=== PATIENT | male | born 1990 | race Caucasian/White ===

== ENCOUNTER 2016-12-07 21:56 | Emergency (ER) | payer OTHER ==
[2016-12-07 22:07] VITALS: BP 143/95; TEMP 98; BMI 35.9
--- NOTE | 2016-12-07 22:34 | PDOC ---
History of Present Illness <Desiree Mathur - Last Filed: 12/07/16 22:45> - History of Present Illness Initial Comments: 12/07/16 22:34 CHIEF COMPLAINT: chest pain HISTORY OF PRESENT ILLNESS: 26 yo M with no significant PMH presents to ED with chest pain that began approximately 1.5 hours ago. Patient states " I think it was just a little panic attack." He reports having a lot of congestion recently and woke up feeling like he couldn't breathe, "and I think that made me scared." but now he no longer has chest pain and has no SOB. He reports two days of cough and congestion but denies any fever, nausea, vomiting, diarrhea, headache. No recent travel or sick contacts. PAST MEDICAL HISTORY: Denies past medical history FAMILY HISTORY: Denies SOCIAL HISTORY: Very occasional alcohol use. Denies tobacco, illicit drug use. SURGICAL HISTORY: Denies ALLERGIES: No known drug allergies REVIEW OF SYSTEMS General/Constitutional: Denies fever or chills. Denies weakness, weight change. HEENT: Denies change in vision. Denies ear pain or discharge. Denies sore throat. Cardiovascular: Chest pain earlier, now resolved. Respiratory: Denies cough, wheezing, or hemoptysis. Gastrointestinal: Denies nausea, vomiting, diarrhea or constipation. Denies rectal bleeding. Genitourinary: Denies dysuria, frequency, or change in urination. Musculoskeletal: Denies joint or muscle swelling or pain. Denies neck or back pain. Skin and breasts: Denies rash or easy bruising. Neurologic: Denies headache, vertigo, loss of consciousness, or loss of sensation. PHYSICAL EXAM General Appearance: Well-appearing, appropriately dressed. No apparent distress , no intoxication. HEENT: Congestion, swollen turbinates. EOMI, PERRLA, normal ENT inspection, normal voice, TMs normal, pharynx normal. No conjunctival pallor. No photophobia, scleral icterus. Neck: Supple. Trachea midline. No tenderness, rigidity, carotid bruit, stridor , lymphadenopathy, or thyromegaly. Respiratory/Chest: Lungs CTAB. No shortness of breath, chest tenderness, respiratory distress, accessory muscle use. No crackles, rales, rhonchi, stridor , wheezing, dullness Cardiovascular: RRR. S1, S2. No JVD, murmur, bradycardia, tachycardia. Vascular Pulses: Dorsalis-Pedis (R): 2+, Dorsalis-Pedis (L): 2+ Gastrointestinal/Abdominal: Normal bowel sounds. Abdomen soft, non-distended. No tenderness or rebound tenderness. No organomegaly, pulsatile mass, guarding , hernia, hepatomegaly, splenomegaly. Lymphatic: No adenopathy, tenderness. Musculoskeletal/Extremities: Normal inspection. FROM of all extremities, normal capillary refill. Pelvis Stable. No CVA tenderness. No tenderness to extremities, pedal edema, swelling, erythema or deformity. Integumentary: Appropriate color, dry, warm. 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 Fully oriented, alert. Appropriate mood/affect. Motor strength 5/5. No appreciable EOM palsy, facial droop or sensory deficit. 12/07/16 22:50 <Tori Gomez - Last Filed: 12/07/16 23:26> - General Chief Complaint: Chest Pain Stated Complaint: CHEST PAIN Time Seen by Provider: 12/07/16 22:18 Past History <Desiree Mathur - Last Filed: 12/07/16 22:45> - Past Medical History GI Disorders: Yes (GERD) - Immunization History Immunization Up to Date: Yes - Psycho/Social/Smoking Cessation Hx Anxiety: No Suicidal Ideation: No Smoking Status: No Smoking History: Never smoked Number of Cigarettes Smoked Daily: 0 Hx Alcohol Use: No <Tori Gomez - Last Filed: 12/07/16 23:26> - Past Medical History Allergies/Adverse Reactions: Allergies Allergy/AdvReac Type Severity Reaction Status Date / Time No Known Allergies Allergy Verified 12/07/16 22:04 Home Medications: Ambulatory Orders Dextromethorphan HBr [Robitussin] 15 mg PO QID PRN #28 capsule 12/07/16 Loratadine [Claritin -] 10 mg PO DAILY #14 tablet 12/07/16 *Physical Exam - Vital Signs Last Vital Signs Temp Pulse Resp BP Pulse Ox 98 F 105 H 18 143/95 99 12/07/16 22:05 12/07/16 22:05 12/07/16 22:05 12/07/16 22:05 12/07/16 22:05 <Desiree Mathur - Last Filed: 12/07/16 22:45> - Vital Signs Last Vital Signs Temp Pulse Resp BP Pulse Ox 98 F 105 H 18 143/95 99 12/07/16 22:05 12/07/16 22:05 12/07/16 22:05 12/07/16 22:05 12/07/16 22:05 <Tori Gomez - Last Filed: 12/07/16 23:26> Heart Score/ECG Review - ECG Impressions Comment:: 12/07/16 22:45 NSR @97bpm Possible left atrial enlargement Borderline ECG <Desiree Mathur - Last Filed: 12/07/16 22:45> ED Treatment Course - RADIOLOGY Radiology Studies Ordered: Category Date Time Status CHEST PA & LAT [RAD] Stat Radiology 12/07/16 22:33 Ordered <Tori Gomez - Last Filed: 12/07/16 23:26> Medical Decision Making - Medical Decision Making 12/07/16 23:01 26 yo M with no PMH presents to ED with chest pain and SOB 1.5 hours ago, now resolved. Patient HR 105 on arrival to ED, on exam 88. -EKG, CXR EKG - NSR. Read by myself and MD Aguirre. Advised patient of signs and symptoms for return to ER; patient verbalized understanding and agrees to plan. 12/07/16 23:23 Chest x-ray clear. -Claritin 10 mg po -Dextromethorphan 15 mL QID PRN cough Advised patient to take medication as prescribed and follow up with PMD if symptoms persist. Advised patient of signs and symptoms for return to ED. Patient verbalized understanding and agrees to plan. <Tori Gomez - Last Filed: 12/07/16 23:26> *DC/Admit/Observation/Transfer <Desiree Mathur - Last Filed: 12/07/16 22:45> - Discharge Dispostion Admit: No <Tori Gomez - Last Filed: 12/07/16 23:26> Diagnosis at time of Disposition: Common cold - Discharge Dispostion Disposition: HOME Condition at time of disposition: Stable - Prescriptions Prescriptions: Loratadine [Claritin -] 10 mg PO DAILY #14 tablet Dextromethorphan HBr [Robitussin] 15 mg PO QID PRN #28 capsule PRN Reason: Cough - Referrals Referrals: Nasim Joy MD [Primary Care Provider] -
[2016-12-08 00:34] VITALS: PULSE 98
--- NOTE | 2016-12-08 09:38 | EKG ---
Test Reason : Blood Pressure : / mmHG Vent. Rate : 097 BPM Atrial Rate : 097 BPM P-R Int : 162 ms QRS Dur : 092 ms QT Int : 340 ms P-R-T Axes : 027 067 022 degrees QTc Int : 431 ms NORMAL SINUS RHYTHM POSSIBLE LEFT ATRIAL ENLARGEMENT INCOMPLETE RBBB WHEN COMPARED WITH ECG OF 19-MAR-2013 02:13, NO SIGNIFICANT CHANGE WAS FOUND Confirmed by JOANNA CLEVELAND MD ([id number]) on 12/08/2016 9:38:20 AM Referred By: Confirmed By:JOANNA CLEVELAND MD
== END 2016-12-07 23:47 | disposition home or self-care (01) ==
LOC: JER 21:56
DX: J00 Acute nasopharyngitis [common cold] (principal)
CPT/HCPCS: 71020-TC; 93005; 93010; 99282-25

== ENCOUNTER 2017-02-26 21:47 | Emergency (ER) | payer OTHER ==
--- NOTE | 2017-02-26 21:51 | PDOC ---
Rapid Medical Evaluation Chief Complaint: Psychiatric Time Seen by Provider: 02/26/17 21:49 Medical Evaluation: Allergies Allergy/AdvReac Type Severity Reaction Status Date / Time No Known Allergies Allergy Verified 12/07/16 22:04 I have performed a brief in-person evaluation of this patient. The patient presents with a chief complaint of: "feeling jittery and anxious" Pertinent physical exam findings:BP 153/108 anxious I have ordered the following:EKG The patient will proceed to the ED for further evaluation. 02/26/17 21:50
[2017-02-26 21:53] VITALS: TEMP 98.2; BMI 35.1
[2017-02-26 23:39] LABS: BASOPHIL 0.9 % (0-2.0); MCH 28.1 pg (25.7-33.7); MCHC 32.6 g/dl (32.0-35.9); MEAN PLT VOLUME 9.2 fl (7.5-11.1); NEUTROPHILS 76.9 % (42.8-82.8); PLATELET COUNT 270 K/MM3 (134-434); RDW 12.8 % (11.9-15.9); WHITE BLOOD COUNT 11.5 K/mm3 (4.0-10.0)
[2017-02-27 00:43] LABS: ALBUMIN 3.9 g/dl (3.4-5.0); ANION GAP 8 (8-16); BILIRUBIN,TOTAL 0.6 mg/dL (0.2-1.0); CALCIUM 9.2 mg/dL (8.5-10.1); CO2 30 mmol/L (21-32); COCKROFT - GAULT 214.12; CREATININE 0.9 mg/dL (0.7-1.3); GLUCOSE,RANDOM 101 mg/dL (74-106); SGOT/AST 20 U/L (15-37); SGPT/ALT 42 U/L (12-78)
[2017-02-27 00:52] LABS: ALK PHOS 62 U/L (45-117); THYROID STIMULATING HORMONE 2.39 uIU/ml (0.358-3.74)
[2017-02-27 00:56] LABS: TROPONIN I < 0.02 ng/ml (0.00-0.05)
--- NOTE | 2017-02-27 00:56 | PDOC ---
History of Present Illness <Lauren Victor - Last Filed: 02/27/17 01:16> - History of Present Illness Initial Comments: 02/27/17 01:31 Patient is a 26 year old male with significant medical hx of anxiety and panic attacks who is presenting to the ED with anxiety from today. The patient spent the past four days in [facility] and flew back to [place] today. During the flight back, the patient felt anxious and jittery. He reports his anxiety has made him feel nauseous and short of breath. The patient denies any palpitations, pain, fevers , chills, vomiting, diarrhea, urinary complaints, or chest pain. He states that he wanted to come to the ED for tests to make sure everything is okay. <Mitzy Mills - Last Filed: 02/27/17 01:33> - General Chief Complaint: Psychiatric Stated Complaint: CHEST PAIN Time Seen by Provider: 02/26/17 21:49 Past History - Past Medical History GI Disorders: Yes (GERD) - Immunization History Immunization Up to Date: Yes - Psycho/Social/Smoking Cessation Hx Anxiety: No Suicidal Ideation: No Smoking Status: No Smoking History: Never smoked Number of Cigarettes Smoked Daily: 0 Hx Alcohol Use: No <Lauren Victor - Last Filed: 02/27/17 01:16> <Mitzy Mills - Last Filed: 02/27/17 01:33> - Past Medical History Allergies/Adverse Reactions: Allergies Allergy/AdvReac Type Severity Reaction Status Date / Time No Known Allergies Allergy Verified 02/26/17 21:50 Home Medications: Ambulatory Orders Acetaminophen [Tylenol] 650 mg PO PRN PRN 12/07/16 Dextromethorphan HBr [Robitussin] 15 mg PO QID PRN #28 capsule 12/07/16 Loratadine [Claritin -] 10 mg PO DAILY #14 tablet 12/07/16 Review of Systems - Review of Systems Comments:: 02/27/17 01:31 CONSTITUTIONAL: Absent: fever, no chills, no fatigue EYES: Absent: visual changes ENT: Absent: ear pain, no sore throat CARDIOVASCULAR: Absent: chest pain, no palpitations RESPIRATORY: Present: SOB Absent: cough GI: Present: nausea Absent: abdominal pain, no vomiting, no constipation, no diarrhea GENITOURINARY: Absent: dysuria, no frequency, no hematuria MUSKULOSKELETAL: Absent: back pain, no arthralgia, no myalgia SKIN: Absent: rash NEURO: Absent: headache PSYCH: Present: anxious <Mitzy Mills - Last Filed: 02/27/17 01:33> *Physical Exam - Vital Signs Last Vital Signs Temp Pulse Resp BP Pulse Ox 98.2 F 92 H 20 161/95 100 02/26/17 21:50 02/26/17 21:50 02/26/17 21:50 02/26/17 21:50 02/26/17 21:50 <Lauren Victor - Last Filed: 02/27/17 01:16> - Vital Signs Last Vital Signs Temp Pulse Resp BP Pulse Ox 98.2 F 92 H 20 161/95 100 02/26/17 21:50 02/26/17 21:50 02/26/17 21:50 02/26/17 21:50 02/26/17 21:50 - Physical Exam Comments: 02/27/17 01:32 GENERAL: Well-appearing, well-nourished. No apparent distress. HEENT: Normocephalic, atraumatic. PERRL, EOM intact. CARDIOVASCULAR: Normal S1, S2. Regular rate and rhythm. PULMONARY: Clear to auscultation bilaterally. ABDOMEN: Soft, non-distended, non-tender. EXTREMITIES: Normal ROM in all four extremities. No gross deformities. SKIN: Warm, dry. No rash NEUROLOGICAL: No focal neurological deficits. <Mitzy Mills - Last Filed: 02/27/17 01:33> Heart Score/ECG Review #1 02/27/17 01:33 Normal sinus rhythm at 80 bpm Normal ECG <Mitzy Mills - Last Filed: 02/27/17 01:33> ED Treatment Course - LABORATORY CBC & Chemistry Diagram: 02/26/17 23:23 02/27/17 00:20 - ADDITIONAL ORDERS Additional order review: Laboratory Results 02/26/17 02/26/17 23:30 23:24 D-Dimer < 200 TSH Cancelled 02/26/17 23:23 RBC 4.96 MCV 86.0 MCHC 32.6 RDW 12.8 MPV 9.2 Neutrophils % 76.9 Lymphocytes % 12.8 D Monocytes % 8.4 Eosinophils % 1.0 Basophils % 0.9 D <Lauren Victor - Last Filed: 02/27/17 01:16> - LABORATORY CBC & Chemistry Diagram: 02/26/17 23:23 02/27/17 00:20 - ADDITIONAL ORDERS Additional order review: Laboratory Results 02/27/17 02/26/17 02/26/17 00:20 23:30 23:30 D-Dimer Sodium 141 Potassium 4.6 Chloride 103 Carbon Dioxide 30 Anion Gap 8 BUN 13 D Creatinine 0.9 Creat Clearance w eGFR > 60 Random Glucose 101 Calcium 9.2 Total Bilirubin 0.6 AST 20 ALT 42 D Alkaline Phosphatase 62 Creatine Kinase Creatine Kinase Index CK-MB (CK-2) CK-MB (CK-2) Rel Index Cancelled Troponin I Total Protein 7.0 Albumin 3.9 TSH 2.39 Cancelled 02/26/17 02/26/17 23:30 23:24 D-Dimer < 200 Sodium Potassium Chloride Carbon Dioxide Anion Gap BUN Creatinine Creat Clearance w eGFR Random Glucose Calcium Total Bilirubin AST ALT Alkaline Phosphatase Creatine Kinase 190 D Creatine Kinase Index 1.3 CK-MB (CK-2) 2.466 CK-MB (CK-2) Rel Index Troponin I < 0.02 Total Protein Albumin TSH 02/26/17 23:23 RBC 4.96 MCV 86.0 MCHC 32.6 RDW 12.8 MPV 9.2 Neutrophils % 76.9 Lymphocytes % 12.8 D Monocytes % 8.4 Eosinophils % 1.0 Basophils % 0.9 D <Mitzy Mills - Last Filed: 02/27/17 01:33> *DC/Admit/Observation/Transfer <Lauren Victor - Last Filed: 02/27/17 01:16> - Attestations Scribe Attestion: 02/27/17 01:33 Documentation prepared by Mitzy Mills, acting as certified medical aide for Lauren Victor MD. <Mitzy Mills - Last Filed: 02/27/17 01:33> Diagnosis at time of Disposition: Palpitations - Discharge Dispostion Disposition: HOME Condition at time of disposition: Stable - Referrals Referrals: Nasim Joy MD [Primary Care Provider] - - Patient Instructions Printed Discharge Instructions: DI for Palpitations, DI for Anxiety -- Adult Additional Instructions: PLEASE FOLLOW UP WITH YOUR PRIMARY PHYSICIAN
[2017-02-27 01:35] VITALS: BP 140/80; PULSE 82
--- NOTE | 2017-02-27 11:03 | EKG ---
Test Reason : Blood Pressure : / mmHG Vent. Rate : 080 BPM Atrial Rate : 080 BPM P-R Int : 156 ms QRS Dur : 096 ms QT Int : 390 ms P-R-T Axes : 042 064 020 degrees QTc Int : 449 ms NORMAL SINUS RHYTHM NORMAL ECG WHEN COMPARED WITH ECG OF 07-DEC-2016 22:19, NO SIGNIFICANT CHANGE WAS FOUND Confirmed by CARLOS ELKINS MD ([id number]) on 02/27/2017 11:03:23 AM Referred By: MEGHA Confirmed By:CARLOS ELKINS MD
== END 2017-02-27 01:36 | disposition home or self-care (01) ==
LOC: JER 21:47
DX: F41.9 Anxiety disorder, unspecified (principal); R00.2 Palpitations
CPT/HCPCS: 36415; 80053; 82550; 82553; 84443; 84484; 85025; 85379; 93005; 93010; 99282-25

== ENCOUNTER 2017-04-19 22:23 | Emergency (ER) | payer OTHER ==
[2017-04-19 22:28] VITALS: BP 161/84; PULSE 89; TEMP 97; BMI 34.9
--- NOTE | 2017-04-19 23:31 | PDOC ---
History of Present Illness - General Chief Complaint: Pain Stated Complaint: CHEST PAIN Time Seen by Provider: 04/19/17 22:51 - History of Present Illness Initial Comments: 04/19/17 23:20 27 yo male with h/o tension HLD, HERNANDEZ's, and panic attacks who presents with chest pain. Pt. reports tension/pressure type chest discomfort of 3 hours duration beginning at 1830 and resolving at arrival to ED ( 2200 ). Chest discomfort asx. with SOB, dizziness, and tremulousness. Denies syncope, palpitations, diaphoresis, GI and urinary complaints, vision changes, weakness, numbness/tingling, fevers/chills. He reports taking his BP at home prior to arrival with single recording of 156/88. He states that triggers for panic attacks are stress related and mother at bedside states that she attended two funerals/wakes today and pt. responded that it made him feel "uncomfortable." Pt. with frequent trips to ED for anxiety related symptoms. States that he is opposed to prescription medication use because of concerning side effect profile. Recently prescribed Sumatriptan 25 mg, but non adherent to medication d /t fear of side effects. Takes OTC Motrin prn for HERNANDEZ. Denies caffeine intake. Does not follow with psychiatry, but is unopposed to outpatient [facility] referral. States that he is here for general well being and to make sure he is ok. Last seen in ED 02/27/2017 with negative workup for palpitations. Recently seen outpatient at [facility] for CT head. Did not reveal acute pathology or changes. Recent carotid doppler U/S one week ago. Past History - Past Medical History Allergies/Adverse Reactions: Allergies Allergy/AdvReac Type Severity Reaction Status Date / Time No Known Allergies Allergy Verified 04/19/17 22:28 Home Medications: Ambulatory Orders Acetaminophen [Tylenol] 650 mg PO PRN PRN 12/07/16 Dextromethorphan HBr [Robitussin] 15 mg PO QID PRN #28 capsule 12/07/16 Loratadine [Claritin -] 10 mg PO DAILY #14 tablet 12/07/16 GI Disorders: Yes (GERD) - Immunization History Immunization Up to Date: Yes - Psycho/Social/Smoking Cessation Hx Anxiety: No Suicidal Ideation: No Smoking Status: No Smoking History: Never smoked Number of Cigarettes Smoked Daily: 0 Hx Alcohol Use: No Review of Systems - Review of Systems Comments:: 04/19/17 23:32 GENERAL/CONSTITUTIONAL: No fever or chills. No weakness. HEAD, EYES, EARS, NOSE AND THROAT: No change in vision. No ear pain or discharge. No sore throat. CARDIOVASCULAR: No chest pain or shortness of breath RESPIRATORY: No cough, wheezing, or hemoptysis. GASTROINTESTINAL: No nausea, vomiting, diarrhea or constipation. GENITOURINARY: No dysuria, frequency, or change in urination. MUSCULOSKELETAL: No joint or muscle swelling or pain. No neck or back pain. SKIN: No rash NEUROLOGIC: no headache, vertigo, loss of consciousness, or change in strength/ sensation. ENDOCRINE: No increased thirst. No abnormal weight change HEMATOLOGIC/LYMPHATIC: No anemia, easy bleeding, or history of blood clots. ALLERGIC/IMMUNOLOGIC: No hives or skin allergy. *Physical Exam - Vital Signs Last Vital Signs Temp Pulse Resp BP Pulse Ox 97 F L 89 18 161/84 99 04/19/17 22:26 04/19/17 22:26 04/19/17 22:26 04/19/17 22:26 04/19/17 22:26 - Physical Exam Comments: 04/19/17 23:32 GENERAL: Awake, alert, and fully oriented, in no acute distress HEAD: No signs of trauma, normocephalic, atraumatic EYES: PERRLA, EOMI, sclera anicteric, conjunctiva clear ENT: Auricles normal inspection, hearing grossly normal, nares patent, oropharynx clear without exudates. Moist mucosa NECK: Normal ROM, supple, no lymphadenopathy, JVD, or masses LUNGS: No distress, speaks full sentences, clear to auscultation bilaterally HEART: Regular rate and rhythm, normal S1 and S2, no murmurs, rubs or gallops, peripheral pulses normal and equal bilaterally. ABDOMEN: Soft, nontender, normoactive bowel sounds. No guarding, no rebound. No masses EXTREMITIES: Normal inspection, Normal range of motion, no edema. No clubbing or cyanosis. NEUROLOGICAL: Cranial nerves II through XII grossly intact. Normal speech, normal gait, no focal sensorimotor deficits SKIN: Warm, Dry, normal turgor, no rashes or lesions noted. Heart Score/ECG Review - Electrocardiogram EKG: Normal - Age Age: </= 45 - Risk Factors Risk Factors Heart Score: Yes Hx Hypercholesterolemia - ECG Intrepretation Rhythm: Regular Rhythm - [place]: Normal - QRS Poor R Wave Progression: No Q Wave Present: No - ST and T Early Repolarization: No Non Specific ST-T Wave changes: No Flattened T Waves: No Prolonged Q-T Interval: No - ECG Impressions Normal ECG: Yes Non-specific ST Elevation: No Ischemic Changes: No Torsades deepika Pointes: No WPW: No Medical Decision Making - Medical Decision Making 04/19/17 23:32 27 yo M with h/o HLD, tension HERNANDEZ's, and anxiety related panic attacks who presents with chest pain. Pt. with anxiety related symptoms ( SOB, Chest discomfort, presyncope, HTN) prior to arrival and frequent ED visits for anxiety presents with self limiting chest pain/discomfort following mothers attendance at /wake. He reports this as a trigger for his symptoms. Currently stable with complete resolution of symptoms. Physical exam benign. There is low suspicion for ischemic chest pain, PE, pneumonia. 04/19/17 23:38 ED Course: EKG: Normal Sinus rhythm. Unremarkable Discussed results of CT HEAD and EKG with patient. Discharge *DC/Admit/Observation/Transfer Diagnosis at time of Disposition: Palpitations, Anxiety about health Chest pain Qualifiers: Chest pain type: other chest pain Qualified Code(s): R07.89 - Other chest pain ; R07.8 - Other chest pain - Discharge Dispostion Disposition: HOME Condition at time of disposition: Improved Admit: No - Referrals Referrals: Nasim Joy MD [Staff Physician] - - Patient Instructions Printed Discharge Instructions: DI for Chest Pain - Attestations Physician Attestion: 04/19/17 23:53 I, Dr. Zack Donato, attest that this document has been prepared under my direction and personally reviewed by me in its entirety. I further attest, that it accurately reflects all work, treatment, procedures and medical decision -making performed by me.
--- NOTE | 2017-04-19 23:41 | PDOC ---
Attending Attestation - Resident Resident Name: Zack Donato - ED Attending Attestation I have performed the following: I have examined & evaluated the patient, The case was reviewed & discussed with the resident, I agree w/resident's findings & plan, Exceptions are as noted - HPI HPI: 04/19/17 23:47 pt c/o chest pain. Want sot make sure he isn't dying. - Physicial Exam PE: 04/19/17 23:41 *Physical Exam General Appearance: Yes: Appropriately Dressed. No: Apparent Distress, Intoxicated HEENT: positive: EOMI, ROSA, Normal ENT Inspection, Normal Voice, TMs Normal, Pharynx Normal. negative: Pale Conjunctivae, Photophobia, Scleral Icterus (R), Scleral Icterus (L) Neck: positive: Trachea midline, Normal Thyroid, Supple. negative: Tender, Rigid, Carotid bruit, Stridor, Lymphadenopathy (R), Lymphadenopathy (L), Thyromegaly Respiratory/Chest: positive: Lungs Clear, Normal Breath Sounds. negative: Chest Tender, Respiratory Distress, Accessory Muscle Use, Labored Respiration, RES, Crackles, Rales, Rhonchi, Stridor, Wheezing, Dullness Cardiovascular: positive: Regular Rhythm, Regular Rate, S1, S2. negative: Edema , JVD, Murmur, Bradycardia, Tachycardia Vascular Pulses: Dorsalis-Pedis (R): 2+, Doralis-Pedis (L): 2+ Gastrointestinal/Abdominal: positive: Normal Bowel Sounds, Flat, Soft. negative : Tender, Organomegaly, Pulsatile Mass, Increased Bowel Sounds, Decreased BS, Distended, Guarding, Rebound, Hernia, Hepatomegaly, Spleenomegaly Lymphatic: negative: Adenopathy, Tenderness Musculoskeletal: positive: Normal Inspection. negative: CVA Tenderness, Decreased Range of Motion Extremity: positive: Normal Capillary Refill, Normal Inspection, Normal Range of Motion, Pelvis Stable. negative: Tender, Pedal Edema, Swelling, Erythema Integumentary: positive: Normal Color, Dry, Warm. 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 negative: EOM Palsy, Facial Droop, Sensory Deficit - Medical Decision Making 04/19/17 23:48 EKG NSR without any changes. Pt will be discharged. Discharge Disposition - Diagnosis Palpitations Chest pain Qualifiers: Chest pain type: unspecified Qualified Code(s): R07.9 - Chest pain, unspecified - Discharge Dispostion Disposition: HOME Condition at time of disposition: Stable Last Admission D/C Date: 07/17/11 Admit: No - Patient Instructions Printed Discharge Instructions: DI for Chest Pain
--- NOTE | 2017-04-20 09:19 | EKG ---
Test Reason : Blood Pressure : / mmHG Vent. Rate : 080 BPM Atrial Rate : 080 BPM P-R Int : 164 ms QRS Dur : 090 ms QT Int : 376 ms P-R-T Axes : 032 060 016 degrees QTc Int : 433 ms NORMAL SINUS RHYTHM NORMAL ECG WHEN COMPARED WITH ECG OF 26-FEB-2017 21:58, NO SIGNIFICANT CHANGE WAS FOUND Confirmed by JOANNA CLEVELAND MD ([id number]) on 04/20/2017 9:18:50 AM Referred By: Confirmed By:JOANNA CLEVELAND MD
== END 2017-04-20 00:06 | disposition home or self-care (01) ==
LOC: JER 22:23
DX: R07.89 Other chest pain (principal); F06.4 Anxiety disorder due to known physiological condition
CPT/HCPCS: 93005; 93010; 99282-25

== ENCOUNTER 2017-06-07 02:00 | Emergency (ER) | payer OTHER ==
--- NOTE | 2017-06-07 02:12 | PDOC ---
History of Present Illness - General Stated Complaint: DIFFICULTY BREATHING Time Seen by Provider: 06/07/17 02:06 History Source: Patient Exam Limitations: No Limitations - History of Present Illness Initial Comments: 06/07/17 02:21 27-year-old male with a history of GERD presents to the emergency department complaining of shortness of breath 24 hours. Patient attributes his symptoms to nasal congestion. Patient states he had a subjective temperature of 100.0 earlier this afternoon. He denies any headache, dizziness, lightheadedness, neck pains, back pains, facial pain, chest pain, abdominal discomfort. Patient denies prolonged sitting or recent flights. Symptoms is exacerbated when laying supine but alleviated when sitting up. Timing/Duration: reports: yesterday Possible Cause: Yes: no prior episodes Associated Symptoms: reports: cough, nasal congestion, nasal drainage. denies: fever/chills, headache, sinus infection, sore throat Past History - Past Medical History Allergies/Adverse Reactions: Allergies Allergy/AdvReac Type Severity Reaction Status Date / Time No Known Allergies Allergy Verified 06/07/17 02:13 Home Medications: Ambulatory Orders Acetaminophen [Tylenol] 650 mg PO PRN PRN 12/07/16 Dextromethorphan HBr [Robitussin] 15 mg PO QID PRN #28 capsule 12/07/16 Loratadine [Claritin -] 10 mg PO DAILY #14 tablet 12/07/16 GI Disorders: Yes (GERD) Hypercholesterolemia: Yes - Immunization History Immunization Up to Date: Yes - Psycho/Social/Smoking Cessation Hx Anxiety: No Suicidal Ideation: No Smoking Status: No Smoking History: Never smoked Number of Cigarettes Smoked Daily: 0 Hx Alcohol Use: No Review of Systems - Review of Systems Able to Perform ROS?: Yes Comments:: 06/07/17 02:22 CONSTITUTIONAL: Absent: fever, chills, diaphoresis, generalized weakness, malaise, loss of appetite HEENT: +rhinorrhea, nasal congestion, Absent: throat pain, throat swelling, difficulty swallowing, mouth swelling, ear pain, eye pain, visual Changes CARDIOVASCULAR: Absent: chest pain, loss of consciousness, palpitations, irregular heart rate, peripheral edema RESPIRATORY: Absent: cough, shortness of breath, dyspnea with exertion, orthopnea, wheezing, stridor, hemoptysis GASTROINTESTINAL: Absent: abdominal pain, abdominal distension, nausea, vomiting, diarrhea, constipation, melena, hematochezia GENITOURINARY: Absent: dysuria, frequency, urgency, hesitancy, hematuria, flank pain, genital pain MUSCULOSKELETAL: Absent: myalgia, arthralgia, joint swelling SKIN: Absent: rash, itching, pallor HEMATOLOGIC/IMMUNOLOGIC: Absent: easy bleeding, easy bruising, lymphadenopathy, frequent infections ENDOCRINE: Absent: unexplained weight gain, unexplained weight loss, heat intolerance, cold intolerance NEUROLOGIC: Absent: headache, focal weakness or paresthesias, dizziness, unsteady gait, seizure, mental status changes, bladder or bowel incontinence PSYCHIATRIC: Absent: anxiety, depression, suicidal or homicidal ideation, hallucinations. Is the patient limited Brazilian proficient: No *Physical Exam - Physical Exam Comments: 06/07/17 02:22 GENERAL: Well developed, well nourished. Awake and alert. No acute distress. HEENT: Normocephalic, atraumatic. PERRLA, EOMI. No conjunctival pallor. Sclera are non- icteric. Moist mucous membranes. Oropharynx is clear. NECK: Supple. Full ROM. No JVD. Carotid pulses 2+ and symmetric, without bruits. No thyromegaly. No lymphadenopathy. CARDIOVASCULAR: Regular rate and rhythm. No murmurs, rubs, or gallops. Distal pulses are 2+ and symmetric. PULMONARY: No evidence of respiratory distress. Lungs clear to auscultation bilaterally. No wheezing, rales or rhonchi. ABDOMINAL: Soft. Non-tender. Non-distended. No rebound or guarding. No organomegaly. Normoactive bowel sounds. MUSCULOSKELETAL Normal range of motion at all joints. No bony deformities or tenderness. No CVA tenderness. EXTREMITIES: No cyanosis. No clubbing. No edema. No calf tenderness. SKIN: Warm and dry. Normal capillary refill. No rashes. No jaundice. NEUROLOGICAL: Alert, awake, appropriate. Cranial nerves 2-12 intact. No deficits to light touch and temperature in face, upper extremities and lower extremities. No motor deficits in the in face, upper extremities and lower extremities. Normoreflexic in the upper and lower extremities. Normal speech. Toes are down- going bilaterally. Gait is normal without ataxia. PSYCHIATRIC: Cooperative. Good eye contact. Appropriate mood and affect. ED Treatment Course - RADIOLOGY Radiograph Interpretation: 06/07/17 02:23 CXR 2v NAD *DC/Admit/Observation/Transfer Diagnosis at time of Disposition: Viral syndrome - Discharge Dispostion Disposition: HOME Condition at time of disposition: Stable Admit: No - Referrals Referrals: Nasim Joy MD [Primary Care Provider] - - Patient Instructions Printed Discharge Instructions: DI for Viral Syndrome Additional Instructions: [id number] supportive care Follow-up with your primary care physician tomorrow Return back to the emergency department for severe/persistent or worsening symptoms - Post Discharge Activity Work/School Note: Back to Work
[2017-06-07 02:14] VITALS: BP 162/91; PULSE 96; TEMP 98; BMI 34.4
--- NOTE | 2017-06-07 02:37 | PDOC ---
*Physical Exam - Vital Signs Last Vital Signs Temp Pulse Resp BP Pulse Ox 98.0 F 96 H 20 162/91 100 06/07/17 02:13 06/07/17 02:13 06/07/17 02:13 06/07/17 02:13 06/07/17 02:15 Medical Decision Making - Medical Decision Making 06/07/17 02:37 agree with care from GERALD Mathews *DC/Admit/Observation/Transfer Diagnosis at time of Disposition: Viral syndrome - Discharge Dispostion Disposition: HOME Condition at time of disposition: Stable - Referrals Referrals: Nasim Joy MD [Primary Care Provider] - - Patient Instructions Printed Discharge Instructions: DI for Viral Syndrome Additional Instructions: [id number] supportive care Follow-up with your primary care physician tomorrow Return back to the emergency department for severe/persistent or worsening symptoms - Post Discharge Activity Work/School Note: Back to Work
== END 2017-06-07 03:07 | disposition home or self-care (01) ==
LOC: JER 02:00
DX: B34.9 Viral infection, unspecified (principal)
CPT/HCPCS: 71020-TC; 99282-25

== ENCOUNTER 2019-02-09 20:00 | Emergency (ER) | payer OTHER ==
[2019-02-09 20:23] VITALS: BMI 34.2
[2019-02-09] MEDS ORDERED: IBUPROFEN 600 MG TABLET (FP) PO ONE ×2 (21:09)
--- NOTE | 2019-02-09 21:10 | PDOC ---
History of Present Illness - General Chief Complaint: Sore Throat Stated Complaint: CHEST PAIN/FEVER Time Seen by Provider: 02/09/19 21:04 History Source: Patient Exam Limitations: No Limitations - History of Present Illness Initial Comments: 02/09/19 21:05 Patient states had onset of fever and pain with cough, runny nose and congestion since Sunday. 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 Has taken Motrin and Tylenol with some fever relief but Tmax came to 103 with a high heart rate. States palpated pulse at 150 but diminished. Also started azithromycin 2 days ago as he had a prescription from one month ago where his doctor gave him same for URI but did not take. Timing/Duration: reports: constant, intermittent Severity: reports: mild, moderate Associated Symptoms: reports: cough, fever/chills, lightheadedness, nasal congestion, nasal drainage Past History - Travel Traveled outside of the country in the last 30 days: No Close contact w/someone who was outside of country & ill: No - Past Medical History Allergies/Adverse Reactions: Allergies Allergy/AdvReac Type Severity Reaction Status Date / Time No Known Allergies Allergy Verified 02/09/19 20:18 Home Medications: Ambulatory Orders Acetaminophen [Tylenol] 650 mg PO PRN PRN 12/07/16 Dextromethorphan HBr [Robitussin] 15 mg PO QID PRN #28 capsule 12/07/16 Loratadine [Claritin -] 10 mg PO DAILY #14 tablet 12/07/16 COPD: No GI Disorders: Yes (GERD) Hypercholesterolemia: Yes - Immunization History Immunization Up to Date: Yes - Suicide/Smoking/Psychosocial Hx Smoking Status: No Smoking History: Never smoked Have you smoked in the past 12 months: No Number of Cigarettes Smoked Daily: 0 Hx Alcohol Use: No Drug/Substance Use Hx: No Substance Use Type: None Review of Systems - Review of Systems Able to Perform ROS?: Yes Is the patient limited Georgian proficient: Yes Constitutional: Yes: Symptoms Reported, See HPI, Fever, Malaise HEENTM: Yes: Nose Congestion Respiratory: Yes: Symptoms reported, See HPI, Cough. No: Wheezing Musculoskeletal: No: Symptoms Reported All Other Systems: Reviewed and Negative *Physical Exam - Vital Signs Last Vital Signs Temp Pulse Resp BP Pulse Ox 100.2 F H 122 H 22 H 130/81 97 02/09/19 20:18 02/09/19 20:18 02/09/19 20:18 02/09/19 20:18 02/09/19 20:18 - Physical Exam General Appearance: Yes: Appropriately Dressed, Apparent Distress HEENT: positive: ROSA, Normal ENT Inspection (some posterior sinus drainage noted but no erythema or exudate noted to tonsils), Nasal Congestion, Rhinorrhea , Sinus Tenderness. negative: TMs Normal (congested but landmarks easily visualized) Neck: positive: Supple, Lymphadenopathy (R), Lymphadenopathy (L) Respiratory/Chest: positive: Lungs Clear, Normal Breath Sounds Cardiovascular: positive: Regular Rate, Tachycardia (mild tachycardia, fever 100.1) Gastrointestinal/Abdominal: positive: Soft Extremity: positive: Normal Capillary Refill, Normal Inspection, Normal Range of Motion. 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, Fully Oriented, Alert, Normal Mood/ Affect, Normal Response, Motor Strength 5/5 *DC/Admit/Observation/Transfer Diagnosis at time of Disposition: Viral syndrome - Discharge Dispostion Disposition: HOME Condition at time of disposition: Stable Decision to Admit order: No - Referrals Referrals: Nasim Joy MD [Primary Care Provider] - - Patient Instructions Printed Discharge Instructions: DI for Viral Upper Respiratory Infection -- Adult Additional Instructions: Rest, drink lots of fluids: Teas, water, soups, Pedialyte Saltwater gargles Steamy showers/seem to face break up mucus Avoid contact with others until fevers and cough resolved Lots of handwashing and good hygiene Continue [id number] medications for symptomatic relief Tylenol or Motrin for fever and pain Continue Zithromax at until completed Followup with private physician in one to 2 days as needed Return to emergency department for worsened symptoms, fevers, dehydration - Post Discharge Activity Forms/Work/School Notes: Back to Work
[2019-02-09 21:12] VITALS: BP 119/69; PULSE 112; TEMP 100.9
--- NOTE | 2019-02-12 13:05 | EKG ---
Test Reason : Blood Pressure : / mmHG Vent. Rate : 112 BPM Atrial Rate : 112 BPM P-R Int : 154 ms QRS Dur : 098 ms QT Int : 340 ms P-R-T Axes : 049 100 035 degrees QTc Int : 464 ms SINUS TACHYCARDIA POSSIBLE LEFT ATRIAL ENLARGEMENT RIGHTWARD AXIS BORDERLINE ECG WHEN COMPARED WITH ECG OF 19-APR-2017 22:37, NO SIGNIFICANT CHANGE WAS FOUND Confirmed by SKYLER RENNER MD ([id number]) on 02/12/2019 1:05:35 PM Referred By: Confirmed By:SKYLER RENNER MD
== END 2019-02-09 21:30 | disposition home or self-care (01) ==
LOC: JERFT 20:00
DX: J06.9 Acute upper respiratory infection, unspecified (principal); B97.89 Other viral agents as the cause of diseases classified elsewhere
CPT/HCPCS: 93005; 93010; 99281-25

== ENCOUNTER 2019-06-27 08:15 | Emergency (ER) | payer OTHER ==
[2019-06-27 08:25] VITALS: BMI 34.2
[2019-06-27] MEDS ORDERED: MAG HYDROX/AL HYDROX/SIMETH -MYLANTA- ORAL SUSPENSION PO ONE (09:07)
--- NOTE | 2019-06-27 09:08 | PDOC ---
History of Present Illness - General Chief Complaint: Chest Pain Stated Complaint: MIDDLE CHEST PAIN Time Seen by Provider: 06/27/19 08:49 History Source: Patient Exam Limitations: No Limitations - History of Present Illness Initial Comments: 06/27/19 09:10 Nathaniel Roche is a 29yM w PMHx reflux presenting w chest pain. Noted sudden onset midsternal chest pain at midnight while lying in bed. Associated generalized shaking, not related to exertion/position. Has 2-3 daily episodes of chest pain for last week mostly at night that self-resolves w rest. Denies smoking, alcohol, illicit drugs. Feeling anxious this week worrying about father currently in hospital undergoing stent placement. Denies fever, cough, nausea/vomiting, AB pain, urinary/bowel movement changes. Past History - Past Medical History Allergies/Adverse Reactions: Allergies Allergy/AdvReac Type Severity Reaction Status Date / Time No Known Allergies Allergy Verified 06/27/19 09:46 Home Medications: Ambulatory Orders Omeprazole 40 mg PO DAILY 06/27/19 COPD: No GI Disorders: Yes (GERD) Hypercholesterolemia: Yes - Immunization History Immunization Up to Date: Yes - Psycho Social/Smoking Cessation Hx Smoking Status: No Smoking History: Never smoked Have you smoked in the past 12 months: No Number of Cigarettes Smoked Daily: 0 Hx Alcohol Use: No Drug/Substance Use Hx: No Substance Use Type: None Review of Systems - Review of Systems Constitutional: No: Chills, Fever, Malaise, Weakness HEENTM: No: Eye Pain, Nose Pain, Throat Pain, Mouth Pain Respiratory: No: Cough, Shortness of Breath Cardiac (ROS): Yes: Chest Pain. No: Palpitations ABD/GI: No: Abdominal Distended, Constipated, Diarrhea, Nausea, Vomiting : No: Burning, Dysuria, Discharge, Frequency, Flank Pain Musculoskeletal: No: Back Pain, Gout, Joint Swelling, Muscle Pain Integumentary: No: Bruising, Dryness, Erythema Neurological: Yes: Tremors. No: Headache, Seizure, Tingling Psychiatric: Yes: Anxiety, Stressors. No: Depression Endocrine: No: Excessive Sweating, Flushing, Intolerance to Cold, Intolerance to Heat Hematologic/Lymphatic: No: Anemia, Blood Clots, Easy Bleeding *Physical Exam - Vital Signs Last Vital Signs Temp Pulse Resp BP Pulse Ox 98 F 85 18 137/80 98 06/27/19 10:11 06/27/19 10:11 06/27/19 10:11 06/27/19 10:11 06/27/19 10:11 - Physical Exam General Appearance: Yes: Nourished, Appropriately Dressed. No: Apparent Distress HEENT: positive: EOMI, ROSA, Normal Voice, Hearing Grossly Normal. negative: Scleral Icterus (R), Scleral Icterus (L), Nasal Congestion, Rhinorrhea Respiratory/Chest: positive: Lungs Clear, Normal Breath Sounds. negative: Chest Tender, Respiratory Distress, Crackles, Rales, Rhonchi, Stridor, Wheezing Cardiovascular: positive: Regular Rhythm, Regular Rate, S1, S2. negative: Edema , Murmur Extremity: positive: Normal Capillary Refill. negative: Swelling Integumentary: positive: Normal Color Neurologic: positive: Fully Oriented, Alert, Normal Mood/Affect (anxious), Normal Response, Responsive. negative: Numbness, Confused, Disoriented Heart Score/ECG Review - History History: Slightly suspicious - Electrocardiogram EKG: Normal - Age Age: </= 45 - Risk Factors Risk Factors Heart Score: No Hx Hypercholesterolemia, No Hx Hypertension, No Hx Diabetes, No Smoking History, No Positive family hx of cardiac disease, Yes Hx Obesity Based on the list above the patient has:: 1-2 risk factors - Troponin Troponin: </= normal limit - Score Heart Score - Total: 1 ED Treatment Course - LABORATORY CBC & Chemistry Diagram: 06/27/19 09:30 06/27/19 09:30 - ADDITIONAL ORDERS Additional order review: Laboratory Results 06/27/19 09:30 Sodium 139 Potassium 4.2 Chloride 105 Carbon Dioxide 28 Anion Gap 6 L BUN 20.7 H Creatinine 0.9 Est GFR (CKD-EPI)AfAm 134.24 Est GFR (CKD-EPI)NonAf 115.82 Random Glucose 123 H Calcium 9.3 Troponin I < 0.02 06/27/19 09:30 RBC 5.24 MCV 84.5 MCHC 34.7 RDW 12.9 MPV 9.8 Neutrophils % 79.5 Lymphocytes % 12.6 Monocytes % 6.2 Eosinophils % 1.4 Basophils % 0.3 - RADIOLOGY Radiology Studies Ordered: Category Date Time Status CHEST PA & LAT [RAD] Stat Radiology 06/27/19 09:07 Completed - Medications Given in the ED: ED Medications Discontinued Medications Generic Name Dose Route Start Last Admin Trade Name Cosmo PRN Reason Stop Dose Admin Al Hydroxide/Mg Hydroxide 30 ml 06/27/19 09:07 06/27/19 09:37 Mylanta Suspension - PO 06/27/19 09:08 30 ml ONCE ONE Administration Pantoprazole Sodium 40 mg 06/27/19 09:09 06/27/19 09:38 Protonix - PO 06/27/19 09:10 40 mg ONCE ONE Administration Medical Decision Making - Medical Decision Making 06/27/19 09:17 CBC BMP trop CXR EKG Given home protonix, maalox EKG shows NSR CXR shows clear lung hanley CBC CMP normal, neg trop Nathaniel Roche is a 29yM w PMHx reflux presenting w 1d of chest pain likely reflux (episodes at night, pmhx reflux) vs anxiety (nervous, stressors). Ruled out ACS (young, neg troponin, EKG NSR), no evidence of lung infection. Given home protonix, maalox w pain relief. D/c home with PCP f/u Discharge - Discharge Information Problems reviewed: Yes Clinical Impression/Diagnosis: Anxiety GERD (gastroesophageal reflux disease) Qualifiers: Esophagitis presence: without esophagitis Qualified Code(s): K21.9 - Gastro- esophageal reflux disease without esophagitis Condition: Good Disposition: HOME - Admission No - Follow up/Referral Referrals: Nasim Joy MD [Primary Care Provider] - - Patient Discharge Instructions Patient Printed Discharge Instructions: DI for Chest Pain Additional Instructions: You were seen for chest pain that is likely due to acid reflux and anxiety. Your labs and imaging do not show anything concerning. You were given medication to treat your pain. Please follow up with your primary care doctor regarding this visit. Come back to the ED if you have worsening chest pain, trouble breathing, or vomiting. - Post Discharge Activity
[2019-06-27] MEDS ORDERED: PANTOPRAZOLE 40 MG TABLET (FP) PO ONE (09:09)
[2019-06-27] MEDS ORDERED: PANTOPRAZOLE 40 MG TABLET (FP) ONE (09:17)
[2019-06-27] MEDS ORDERED: MAG HYDROX/AL HYDROX/SIMETH 30 ML UNIT-DOSE CUP ONE (09:18)
[2019-06-27 09:56] LABS: BASO % 0.3 % (0-2.0); EOS % 1.4 % (0-4.5); HEMATOCRIT 44.3 % (35.4-49); HEMOGLOBIN 15.4 GM/dL (11.7-16.9); LYMPH % 12.6 % (8-40); MCH 29.3 pg (25.7-33.7); MCHC 34.7 g/dl (32.0-35.9); MEAN CELL VOLUME 84.5 fl (80-96); MEAN PLT VOLUME 9.8 fl (7.5-11.1); MONO % 6.2 % (3.8-10.2); NEUT % 79.5 % (42.8-82.8); PLATELET COUNT 263 K/MM3 (134-434); RBC 5.24 M/mm3 (4.00-5.60); RDW 12.9 % (11.9-15.9)
[2019-06-27 10:15] VITALS: BP 137/80; PULSE 85; TEMP 98
[2019-06-27 10:22] LABS: ANION GAP 6 MMOL/L (8-16); BLOOD UREA NITROGEN 20.7 mg/dL (7-18); CALCIUM 9.3 mg/dL (8.5-10.1); CHLORIDE 105 mmol/L (98-107); CO2 28 mmol/L (21-32); CREATININE 0.9 mg/dL (0.55-1.3); GLUCOSE,RANDOM 123 mg/dL (74-106); POTASSIUM 4.2 mmol/L (3.5-5.1); SODIUM 139 mmol/L (136-145)
--- NOTE | 2019-06-29 11:44 | EKG ---
Test Reason : Blood Pressure : / mmHG Vent. Rate : 080 BPM Atrial Rate : 080 BPM P-R Int : 160 ms QRS Dur : 100 ms QT Int : 382 ms P-R-T Axes : 022 054 026 degrees QTc Int : 440 ms NORMAL SINUS RHYTHM POSSIBLE LEFT ATRIAL ENLARGEMENT WHEN COMPARED WITH ECG OF 09-FEB-2019 19:59, NO SIGNIFICANT CHANGE WAS FOUND Confirmed by JOANNA CLEVELAND MD ([id number]) on 06/29/2019 11:44:06 AM Referred By: Confirmed By:JOANNA CLEVELAND MD
== END 2019-06-27 10:40 | disposition home or self-care (01) ==
LOC: JER 08:15
DX: K21.9 Gastro-esophageal reflux disease without esophagitis (principal); E66.9 Obesity, unspecified; Z68.34 Body mass index [BMI] 34.0-34.9, adult
CPT/HCPCS: 36415; 71046-TC-FY; 80048; 84484; 85025; 93005; 93010; 99282-25

== ENCOUNTER 2022-03-07 20:06 | Emergency (ER) | payer OTHER ==
[2022-03-07 20:14] VITALS: BMI 34.9
[2022-03-07] MEDS ORDERED: KETOROLAC TROMETHAMINE 30 MG/1 ML VIAL IM ONE (20:22)
[2022-03-07] MEDS ORDERED: ACETAMINOPHEN 500 MG TABLET (FP) PO ONE (20:22)
[2022-03-07 22:07] VITALS: BP 144/80; PULSE 98; TEMP 100
== END 2022-03-07 22:16 | disposition home or self-care (01) ==
LOC: JER 20:06
DX: R50.9 Fever, unspecified (principal)
CPT/HCPCS: 0241U-QW; 71046-TC-FY; 87651; 93005; 93010; 99285-25